=== PATIENT | female | born 1990 | race Caucasian/White ===

== ENCOUNTER 2021-05-20 11:55 | Emergency (ER) | payer SELFPAY ==
[~2021-05-20] VITALS: Ht 165.1 cm; Wt 59.0 kg
[2021-05-20 11:55] VITALS: BP_SYST 131
[2021-05-20] MEDS ORDERED: NACL 0.9% 1,000 ML IV ONE (13:00)
[2021-05-20 13:21] LABS: BASOPHILS % (AUTO) 0.6 % (0.0-2.0); EOSINOPHILS # (AUTO) 0.1 K/uL (0.0-0.4); EOSINOPHILS % (AUTO) 1.3 % (0.0-4.0); HEMATOCRIT 40.7 % (36-48); HEMOGLOBIN 13.7 g/dL (12.0-16.0); LYMPHOCYTES # (AUTO) 1.9 K/uL (1.0-5.5); LYMPHOCYTES % (AUTO) 31.4 % (20.5-51.5); MEAN CORPUSCULAR HEMOGLOBIN 28 pg (27-31); MEAN CORPUSCULAR HGB CONC 34 % (32-36); MEAN CORPUSCULAR VOLUME 84 fL (79.0-98.0); MONOCYTES # (AUTO) 0.5 K/uL (0.0-1.0); MONOCYTES % (AUTO) 8.3 % (1.7-9.3); NEUTROPHILS # (AUTO) 3.5 K/uL (1.8-7.7); NEUTROPHILS % (AUTO) 58.4 % (40.0-70.0); PLATELET COUNT (AUTO) 349 K/uL (130-430); RED BLOOD CELL COUNT(AUTO) 4.83 MIL/uL (4.2-6.2); RED CELL DISTRIBUTION WIDTH 13.6 % (9.0-15.0); WHITE BLOOD COUNT (AUTO) 5.9 K/uL (4.8-10.8)
[2021-05-20 13:33] LABS: CALCIUM 8.7 mg/dL (8.4-11.0); CREATININE 0.78 mg/dL (0.55-1.30); POTASSIUM 3.5 mmol/L (3.5-5.1)
[2021-05-20 13:42] LABS: TOTAL BILIRUBIN 0.3 mg/dL (0.0-1.0)
[2021-05-20 13:52] LABS: BILIRUBIN,URINE NEGATIVE (NEGATIVE); BLOOD, URINE 2+ (NEGATIVE); COLOR,URINE YELLOW (YELLOW); GLUCOSE,URINE NEGATIVE (NEGATIVE); KETONES,URINE NEGATIVE (NEGATIVE); LEUKOCYTE ESTERASE ,URINE 1+ (NEGATIVE); NITRITE, URINE NEGATIVE (NEGATIVE); PROTEIN URINE NEGATIVE (NEGATIVE); UROBILINOGEN,URINE 0.2 (0.2-1.0)
[2021-05-20 13:56] LABS: CLARITY/URINE HAZY (CLEAR)
[2021-05-20 14:00] LABS: BACTERIA,URINE MODERATE /HPF (None Seen); MUCUS,URINE 1+ /LPF (None Seen)
[2021-05-20 14:04] LABS: BARBITURATE, URINE NEGATIVE (NEG <=200); BENZODIAZEPINE, URINE NEGATIVE (NEG <=150); CANNABINOID, URINE POSITIVE (NEG <=50); COCAINE, URINE NEGATIVE (NEG <=150); METHAMPHETAMINES SCREEN,URINE POSITIVE (NEG <=500); OPIATE, URINE NEGATIVE (NEG <=100); PHENCYCLIDINE SCREEN,URINE NEGATIVE (NEG <=25); UR TRICYCLIC ANTIDEPRESSANTS NEGATIVE (NEG <=300); URINE AMPHETAMINE POSITIVE (NEG <=500); URINE METHADONE NEGATIVE (NEG <=200); URINE OXYCODONE SCREEN NEGATIVE (NEG <=100); URINE PROPOXYPHENE SCREEN NEGATIVE (NEG <=300)
[2021-05-20] MEDS ORDERED: PRED20TA PO (14:13)
[2021-05-20] MEDS ORDERED: VALA10002 PO (14:13)
[2021-05-20] MEDS ORDERED: predniSONE 20 MG TABLET PO ONE (14:15)
[2021-05-20] MEDS ORDERED: valACYclovir HCL 500 MG TABLET PO ONE (14:15)
[2021-05-20 14:48] VITALS: BP_SYST 127
== END 2021-05-20 14:49 | disposition home or self-care (01) ==
LOC: SED 11:55
DX: G51.0 Bell's palsy (principal); F19.10 Other psychoactive substance abuse, uncomplicated; I10 Essential (primary) hypertension; Z79.899 Other long term (current) drug therapy
CPT/HCPCS: 36415; 70450; 71045; 76376; 80053; 80307; 81000; 81025; 84484; 85025; 87086; 93005; 96360; 99285; J7030; J7512